=== PATIENT | female | born 1995 | race Caucasian/White ===

== ENCOUNTER 2020-05-19 06:11 | Inpatient (IN) ==
[2020-05-19] MEDS ORDERED: SODIUM CHLORIDE 0.9% 100 ML IV ONE (07:34)
[2020-05-19] MEDS ORDERED: AMPICILLIN 2,000 MG VIAL ONE (07:34)
[2020-05-19] MEDS ORDERED: AMPICILLIN INJ 2,000 MG in SODIUM CHLORIDE 0.9% 100 ML IV ONE (07:35)
[2020-05-19] MEDS ORDERED: ONDANSETRON 4 MG/2 ML VIAL IV PRN (07:57)
[2020-05-19 08:23] LABS: Basophils % 0.1 % (0.0-0.8); Eosinophils # 0.1 10*3/uL (0.0-0.87); Eosinophils % 0.7 % (0.00-10.9); Hematocrit 33.8 VOL% (35.7-47.0); Hemoglobin 10.9 GM/DL (12.0-16.0); Immature Granulocytes % 0.4 %; Immature Granulocytes Absolute 0.03 #; Mean Corpuscular HGB Conc 32.2 GM/DL (32-36); Mean Corpuscular Volume 86.9 FL (87-102); Monocytes % 5.4 % (1.7-12.7); Neutrophils % 69.4 % (38.7-73.9); Platelet Count 221 T/CUMM (130-400); Red Blood Count 3.89 MC/CUMM (3.8-5.5); Red Cell Distribution Width 13.4 % (9.3-17.3); White Blood Count 8.3 T/CUMM (4-12)
[2020-05-19] MEDS: LACTATED RINGERS 1,000 ML IV SCH (12:00)
[2020-05-19] MEDS: AMPICILLIN INJ 1,000 MG in SODIUM CHLORIDE 0.9% 100 ML IV SCH ×3 (12:00→21:37)
[2020-05-19] MEDS ORDERED: MEPERIDINE 50 MG/1 ML VIAL IV PRN (22:31)
[2020-05-19] MEDS ORDERED: OXYTOCIN/LR 20 UNIT/1,000 ML BAG IV SCH (23:00)
[2020-05-20] MEDS: AMPICILLIN INJ 1,000 MG in SODIUM CHLORIDE 0.9% 100 ML IV SCH ×4 (00:14→16:08)
[2020-05-20] MEDS ORDERED: NALOXONE 0.4 MG/ML VIAL IV PRN (00:22)
[2020-05-20] MEDS ORDERED: LACTATED RINGERS 1,000 ML IV ONE (00:22)
[2020-05-20] MEDS ORDERED: FAMOTIDINE 20 MG/2 ML VIAL IV ONE (00:22)
[2020-05-20] MEDS ORDERED: CITRIC ACID/SODIUM CITRATE 30 ML UDCUP PO ONE (00:22)
[2020-05-20] MEDS ORDERED: PROMETHAZINE 25 MG/1 ML VIAL IM ONE (00:22)
[2020-05-20] MEDS ORDERED: diphenhydrAMINE 50 MG/1 ML VIAL IV PRN ×2 (00:22)
[2020-05-20] MEDS ORDERED: ONDANSETRON 4 MG/2 ML VIAL IV ONE (00:22)
[2020-05-20] MEDS: fentaNYL 2 MCG/ROPIV 0.2% EPID 100 ML EPIDURAL SCH ×2 (01:45→09:09)
[2020-05-20] MEDS: ePHEDrine 50 MG/ML VIAL IV PRN ×3 (03:54→04:42)
[2020-05-20] MEDS: LACTATED RINGERS 1,000 ML IV SCH (05:30)
[2020-05-20 05:44] LABS: Apearance,Urine CLEAR (Clear); Bilirubin,Urine Negative (Negative); Blood, Urine Negative (Negative); Glucose,Urine (UA) Negative (Negative); Hyaline Casts,Urine 1 /LPF (0-3); Ketones,Urine Negative (Negative); Mucus,Urine Occasional /LPF (Occasional); Nitrite,Urine Negative (Negative); Protein,Urine Negative; Urine Color Yellow (Yellow); Urine Specific Gravity 1.012 (1.001-1.035); Urine Urobilinogen < 2.0 EU/DL (0.2-1.0); WBC,Urine 1 /HPF (0-6)
[2020-05-20] MEDS ORDERED: BUTORPHANOL 2 MG/ML VIAL IV SCH (06:00)
[2020-05-20] MEDS ORDERED: BUTORPHANOL 1 MG/ML VIAL IV SCH (06:00)
[2020-05-20] MEDS ORDERED: ceFAZolin 3,000 MG in SYRINGE 1 EACH IV ONE (12:08)
[2020-05-20] MEDS ORDERED: miSOPROStoL 200 MCG TABLET ONE (12:17)
[2020-05-20] MEDS ORDERED: TRANEXAMIC ACID 1,000 MG/10 ML VIAL ONE (12:17)
[2020-05-20] MEDS ORDERED: METHYLERGONOVINE 0.2 MG/1 ML AMP ONE (12:18)
[2020-05-20] MEDS ORDERED: OXYTOCIN/LR 20 UNIT/1,000 ML BAG IV ONE ×2 (12:18→13:53)
[2020-05-20] MEDS ORDERED: CARBOPROST TROMETHAMINE 250 MCG/ML AMP IM ONE (12:18)
[2020-05-20] MEDS ORDERED: KETOROLAC 60 MG/2 ML VIAL IM ONE (12:39)
[2020-05-20] MEDS ORDERED: LIDOCAINE MPF 2% /EPI 20 ML VIAL ONE (12:39)
[2020-05-20] MEDS ORDERED: PHENYLEPHRINE 1 MG/10 ML SYRINGE IV ONE (12:40)
[2020-05-20] MEDS ORDERED: MORPHINE 10 MG/10 ML VIAL ONE (12:42)
[2020-05-20] MEDS ORDERED: fentaNYL 100 MCG/2 ML VIAL ONE (12:43)
[2020-05-20] MEDS ORDERED: RHO(D) IMMUNE GLOBULIN 300 MCG SYRINGE IM ONE (13:53)
[2020-05-20] MEDS ORDERED: ACETAMINOPHEN 325 MG TABLET PO PRN (13:53)
[2020-05-20] MEDS ORDERED: ONDANSETRON 4 MG/2 ML VIAL IV PRN (13:53)
[2020-05-20 13:55] LABS: Cord Arterial Blood HCO3 22.1 MMOL/L
[2020-05-20] MEDS ORDERED: oxyCODONE/ACETAMINOPHEN 5-325 MG TABLET PO PRN (13:57)
[2020-05-20 13:58] LABS: Cord Venous Blood HCO3 23.2 MMOL/L; Cord Venous Blood PCO2 39.2 MMHG; Cord Venous Blood PO2 30.7
[2020-05-20] MEDS ORDERED: LACTATED RINGERS 1,000 ML IV SCH (14:00)
[2020-05-20] MEDS ORDERED: ceFAZolin 1,000 MG in SYRINGE 1 EACH IV SCH (14:00)
[2020-05-20] MEDS ORDERED: HYDROmorphone 2 MG/1 ML VIAL IV PRN (17:45)
[2020-05-20] MEDS: hydrOXYzine HCL 25 MG/1 ML VIAL IM PRN (19:55)
[2020-05-20] MEDS: KETOROLAC 30 MG/1 ML VIAL IV SCH (19:59)
[2020-05-20] MEDS: ceFAZolin 1,000 MG in SYRINGE 1 EACH IV SCH (21:25)
[2020-05-20] MEDS: DOCUSATE SODIUM 100 MG CAPSULE PO SCH (21:25)
[2020-05-20 21:57] LABS: Basophils % 0.2 % (0.0-0.8); Eosinophils % 0.2 % (0.00-10.9); Hematocrit 31.8 VOL% (35.7-47.0); Hemoglobin 10.4 GM/DL (12.0-16.0); Immature Granulocytes % 0.4 %; Immature Granulocytes Absolute 0.05 #; Lymphocytes # 2.1 10*3/uL (1.4-4.0); Lymphocytes % 16.6 % (21.3-54.2); Mean Corpuscular HGB Conc 32.7 GM/DL (32-36); Mean Corpuscular Volume 86.9 FL (87-102); Mean Platelet Volume 10.7 FL (9.6-12.0); Monocytes % 6.2 % (1.7-12.7); Neutrophils % 76.4 % (38.7-73.9); Platelet Count 177 T/CUMM (130-400); Red Blood Count 3.66 MC/CUMM (3.8-5.5); Red Cell Distribution Width 13.4 % (9.3-17.3); White Blood Count 12.8 T/CUMM (4-12)
[2020-05-21] MEDS: KETOROLAC 30 MG/1 ML VIAL IV SCH ×2 (01:11→09:06)
[2020-05-21] MEDS: hydrOXYzine HCL 25 MG/1 ML VIAL IM PRN (01:46)
[2020-05-21] MEDS: ceFAZolin 1,000 MG in SYRINGE 1 EACH IV SCH (04:05)
[2020-05-21 05:56] LABS: Basophils % 0.3 % (0.0-0.8); Eosinophils # 0.1 10*3/uL (0.0-0.87); Eosinophils % 0.7 % (0.00-10.9); Hematocrit 29.9 VOL% (35.7-47.0); Hemoglobin 9.6 GM/DL (12.0-16.0); Immature Granulocytes % 0.5 %; Immature Granulocytes Absolute 0.05 #; Lymphocytes # 2.3 10*3/uL (1.4-4.0); Lymphocytes % 23.8 % (21.3-54.2); Mean Corpuscular HGB Conc 32.1 GM/DL (32-36); Mean Corpuscular Volume 87.7 FL (87-102); Mean Platelet Volume 10.6 FL (9.6-12.0); Neutrophils % 66.7 % (38.7-73.9); Platelet Count 151 T/CUMM (130-400); Red Blood Count 3.41 MC/CUMM (3.8-5.5); Red Cell Distribution Width 13.5 % (9.3-17.3); White Blood Count 9.9 T/CUMM (4-12)
[2020-05-21] MEDS: MAGNESIUM HYDROXIDE SUSP 30 ML UDCUP PO PRN ×2 (09:06→19:56)
[2020-05-21] MEDS: MULTIVITAMIN (PRENATAL) TABLET PO SCH (09:06)
[2020-05-21] MEDS: SIMETHICONE CHEW 80 MG TABLET PO PRN ×2 (09:06→19:56)
[2020-05-21] MEDS: DOCUSATE SODIUM 100 MG CAPSULE PO SCH ×3 (09:07→21:18)
[2020-05-21] MEDS: IBUPROFEN 800 MG TABLET PO PRN (19:56)
[2020-05-22 08:05] VITALS: BP 120/67
[2020-05-22] MEDS: MULTIVITAMIN (PRENATAL) TABLET PO SCH (09:20)
[2020-05-22] MEDS: IBUPROFEN 800 MG TABLET PO PRN (09:20)
[2020-05-22] MEDS: DOCUSATE SODIUM 100 MG CAPSULE PO SCH (10:05)
== END 2020-05-22 12:00 | disposition home or self-care (01) | DRG 788 ==
LOC: N.LDOUT 06:11 → N.LD 06:13 → N.OB 05-20 17:56
PROVIDERS: ADMIT Obstetrics & Gynecology; ATTEND Obstetrics & Gynecology
PROC: LDCSECT (ICD-10-PCS; 2020-05-20 12:35)

== ENCOUNTER 2023-01-03 05:12 | Inpatient (IN) ==
[2023-01-03] MEDS ORDERED: OXYTOCIN/LR 20 UNIT/1,000 ML BAG IV ONE ×3 (05:26→09:21)
[2023-01-03] MEDS ORDERED: METHYLERGONOVINE 0.2 MG/1 ML AMP IM PRN (05:26)
[2023-01-03] MEDS ORDERED: CITRIC ACID/SODIUM CITRATE 30 ML UDCUP PO ONE (05:26)
[2023-01-03] MEDS ORDERED: FAMOTIDINE 20 MG/2 ML VIAL IV ONE (05:26)
[2023-01-03] MEDS ORDERED: miSOPROStoL 200 MCG TABLET RECTAL PRN (05:26)
[2023-01-03] MEDS ORDERED: CARBOPROST TROMETHAMINE 250 MCG/ML AMP IM PRN (05:26)
[2023-01-03] MEDS ORDERED: TRANEXAMIC ACID 1,000 MG in SODIUM CHLORIDE 0.9% 100 ML IV PRN (05:26)
[2023-01-03] MEDS ORDERED: LACTATED RINGERS 1,000 ML IV SCH ×2 (05:30→09:30)
[2023-01-03 06:17] LABS: Basophils % 0.1 % (0.0-0.8); Eosinophils % 0.4 % (0.00-10.9); Hematocrit 31.9 VOL% (35.7-47.0); Hemoglobin 10.1 GM/DL (12.0-16.0); Immature Granulocytes % 0.3 %; Immature Granulocytes Absolute 0.02 #; Lymphocytes # 2.2 10*3/uL (1.4-4.0); Lymphocytes % 32.9 % (21.3-54.2); Mean Corpuscular HGB Conc 31.7 GM/DL (32-36); Mean Corpuscular Volume 82.6 FL (87-102); Mean Platelet Volume 11.5 FL (9.6-12.0); Monocytes # 0.4 10*3/uL (0.11-0.8); Monocytes % 5.8 % (1.7-12.7); Neutrophils % 60.5 % (38.7-73.9); Platelet Count 204 T/CUMM (130-400); Red Blood Count 3.86 MC/CUMM (3.8-5.5); Red Cell Distribution Width 13.4 % (9.3-17.3); White Blood Count 6.68 T/CUMM (4-12)
[2023-01-03 06:36] LABS: Alanine Aminotransferase 21 U/L (13-56); Albumin 2.6 G/DL (3.4-5.0); Alkaline Phosphatase 152 U/L (45-117); Aspartate Amino Transferase 21 U/L (0-37); Bilirubin,Total < 0.39 MG/DL (0.20-1.00); Blood Urea Nitrogen 6 MG/DL (7-18); Calcium 9.1 MG/DL (8.5-10.1); Carbon Dioxide 19 MMOL/L (21-32); Chloride 109 MMOL/L (98-107); Glucose 89 MG/DL (74-106); Osmolality,Calculated 269.8 MOS/KG (273-304); Potassium 3.7 MMOL/L (3.5-5.1); Sodium 137 MMOL/L (136-145); Total Protein 6.7 G/DL (6.4-8.2)
[2023-01-03] MEDS ORDERED: ONDANSETRON 4 MG/2 ML VIAL ONE (06:58)
[2023-01-03] MEDS ORDERED: buprenorphine HCL 0.3 MG/ML VIAL ONE (06:59)
[2023-01-03] MEDS ORDERED: CARBOPROST TROMETHAMINE 250 MCG/ML AMP IM ONE (07:09)
[2023-01-03] MEDS ORDERED: miSOPROStoL 200 MCG TABLET ONE (07:09)
[2023-01-03] MEDS ORDERED: METHYLERGONOVINE 0.2 MG/1 ML AMP ONE (07:09)
[2023-01-03] MEDS ORDERED: TRANEXAMIC ACID 1,000 MG/10 ML VIAL ONE (07:09)
[2023-01-03] MEDS ORDERED: SODIUM CHLORIDE 0.9% 0 ML IV ONE (07:09)
[2023-01-03] MEDS ORDERED: ceFAZolin 3,000 MG in SYRINGE 1 EACH IV ONE (07:30)
[2023-01-03] MEDS ORDERED: PHENYLEPHRINE 1 MG/10 ML SYRINGE IV ONE (08:06)
[2023-01-03] MEDS ORDERED: LACTATED RINGERS 1,000 ML IV ONE (08:06)
[2023-01-03 08:37] LABS: Cord Venous Blood HCO3 23.5 MMOL/L; Cord Venous Blood PCO2 42.4 MMHG
[2023-01-03 08:37] LABS: Bacteria,Urine Occasional /HPF (Few); Bilirubin,Urine Negative (Negative); Blood, Urine Negative (Negative); Glucose,Urine (UA) Negative (Negative); Ketones,Urine Negative (Negative); Mucus,Urine Occasional /LPF (Occasional); Nitrite,Urine Negative (Negative); Protein,Urine Negative (Negative); RBC,Urine 1 /HPF (0-4); Urine Appearance Clear (Clear); Urine Color Yellow (Yellow); Urine Specific Gravity 1.015 (1.001-1.035); Urine Urobilinogen 0.2 eU/dL (<2.0); Urine pH 7.5 (4.5-8.0)
[2023-01-03] MEDS ORDERED: MIDAZOLAM 2 MG/2 ML VIAL ONE (08:38)
[2023-01-03] MEDS ORDERED: KETOROLAC 30 MG/1 ML VIAL ONE (08:42)
[2023-01-03] MEDS ORDERED: ACETAMINOPHEN INJ 1,000 MG/100 ML VIAL IV ONE (08:42)
[2023-01-03] MEDS ORDERED: ONDANSETRON 4 MG/2 ML VIAL IV PRN (09:21)
[2023-01-03] MEDS ORDERED: MAGNESIUM HYDROXIDE SUSP 30 ML UDCUP PO PRN (09:21)
[2023-01-03] MEDS ORDERED: ACETAMINOPHEN 325 MG TABLET PO PRN (09:21)
[2023-01-03] MEDS ORDERED: RHO(D) IMMUNE GLOBULIN 300 MCG SYRINGE IM ONE (09:21)
[2023-01-03] MEDS ORDERED: SIMETHICONE CHEW 80 MG TABLET PO PRN (09:21)
[2023-01-03] MEDS ORDERED: IBUPROFEN 800 MG TABLET PO PRN (09:21)
[2023-01-03] MEDS ORDERED: KETOROLAC 30 MG/1 ML VIAL IV SCH (17:00)
[2023-01-03] MEDS: KETOROLAC 30 MG/1 ML VIAL IV SCH (20:11)
[2023-01-03] MEDS: ACETAMINOPHEN 500 MG TABLET PO SCH (23:42)
[2023-01-04] MEDS: KETOROLAC 30 MG/1 ML VIAL IV SCH ×2 (01:55→04:04)
[2023-01-04 05:24] LABS: Basophils % 0.2 % (0.0-0.8); Eosinophils # 0.1 10*3/uL (0.0-0.87); Eosinophils % 1.2 % (0.00-10.9); Hematocrit 30.4 VOL% (35.7-47.0); Hemoglobin 9.9 GM/DL (12.0-16.0); Immature Granulocytes % 0.5 %; Immature Granulocytes Absolute 0.04 #; Lymphocytes # 1.9 10*3/uL (1.4-4.0); Lymphocytes % 23.3 % (21.3-54.2); Mean Corpuscular HGB Conc 32.6 GM/DL (32-36); Mean Corpuscular Volume 83.5 FL (87-102); Mean Platelet Volume 11.3 FL (9.6-12.0); Monocytes # 0.5 10*3/uL (0.11-0.8); Monocytes % 6.2 % (1.7-12.7); Neutrophils % 68.6 % (38.7-73.9); Platelet Count 149 T/CUMM (130-400); Red Blood Count 3.64 MC/CUMM (3.8-5.5); Red Cell Distribution Width 13.5 % (9.3-17.3); White Blood Count 8.27 T/CUMM (4-12)
[2023-01-04] MEDS: ACETAMINOPHEN 500 MG TABLET PO SCH (05:55)
[2023-01-04] MEDS: MULTIVITAMIN (PRENATAL) TABLET PO SCH (09:27)
[2023-01-04] MEDS ORDERED: CETIRIZINE 10 MG TABLET PO PRN (09:27)
[2023-01-04] MEDS: DOCUSATE SODIUM 100 MG CAPSULE PO SCH ×2 (09:27→20:52)
[2023-01-04] MEDS ORDERED: ACETAMINOPHEN 500 MG TABLET PO SCH (15:30)
[2023-01-05] MEDS ORDERED: MULTIVITAMIN (PRENATAL) TABLET PO SCH (09:00)
[2023-01-05] MEDS: DOCUSATE SODIUM 100 MG CAPSULE PO SCH (09:43)
[2023-01-05] MEDS: MULTIVITAMIN (PRENATAL) TABLET PO SCH (09:43)
[2023-01-05 13:18] VITALS: BP 128/98
== END 2023-01-05 12:00 | disposition home or self-care (01) | DRG 788 ==
LOC: N.LDOUT 05:12 → N.LD 05:14 → N.OB 12:13
PROVIDERS: ADMIT Obstetrics & Gynecology; ATTEND Obstetrics & Gynecology
PROC: LDCSECT (ICD-10-PCS; 2023-01-03 07:00)